=== PATIENT | female | born 1975 | race Hispanic/Latino ===

== ENCOUNTER → 2024-02-20 | Day surgery (SDC) | payer OTHER ==
[~2024-02-20] MED LIST: ACETAMINOPHEN 1000 MG/100 ML 100 ML IV ONE; FENTANYL CITRATE/PF 100MCG/2 ML INJ ONE; LIDOCAINE HCL 2% LOCAL INJ 5 ML SDV VIAL INJ ONE; MIDAZOLAM HCL 2 MG/2 ML VIAL ONE; PROPOFOL IV EMULSION 10 MG/ML 20 ML VIAL ONE
[2024-02-20] MEDS: LACTATED RINGER'S 1,000 ML ONE (06:05)
[2024-02-20 08:48] VITALS: TEMP 97.4
[2024-02-20] MEDS: ACETAMINOPHEN 1000 MG/100 ML IV ONE (09:05)
[2024-02-20 09:40] VITALS: BP 120/67; PULSE 76; RESP 18; O2SAT 99
== END | disposition home or self-care (01) ==
LOC: OR 05:42
PROVIDERS: ATTEND Internal Medicine Gastroenterology
DX: K29.50 Unspecified chronic gastritis without bleeding (principal); Z86.0100 Personal history of colon polyps, unspecified; A04.8 Other specified bacterial intestinal infections; K52.9 Noninfective gastroenteritis and colitis, unspecified; K21.9 Gastro-esophageal reflux disease without esophagitis; K64.1 Second degree hemorrhoids; D64.9 Anemia, unspecified; Z78.9 Other specified health status; Z68.33 Body mass index [BMI] 33.0-33.9, adult; Z83.719 Family history of colon polyps, unspecified
CPT/HCPCS: 43239; 45380; 81025; J0131; J2003; J2704; J3010; J7121; 45378; J2250